=== PATIENT | male | born 1955 | race Caucasian/White ===

== ENCOUNTER 2021-11-03 12:00 | Emergency (ER) | payer MEDICARE, SELFPAY ==
[2021-11-03] VITALS (36 sets, daily range): BP systolic 127–190; BP diastolic 85–152; PULSE 86–200; RESP 15–34; TEMP 36.5–36.8; O2SAT 93–98
--- NOTE | 2021-11-03 12:00 | RT.EKG_ITS ---
APPROVED REPORT Exam: Resting ECG Reason for Exam: tacycardia Patient Location: E HR:159 bpm ECG Measurements Heart Rate 159 AXIS OR 90 P 0 QRSd 76 QRS 65 QT 284 T 242 QTc 463 Conclusion Supraventricular tachycardia...V-rate>(220-age), QRSd<120 Low voltage, extremity leads...all extremity leads <0.5mV Repolarization abnormality, prob rate related...ST dep, T neg, tachycardia no STEMI I have reviewed and interpreted ECG and agree with software generated interpretation.
[2021-11-03 12:42] LABS: Abs Immature Grans 0.02 10^3/uL (0.0-0.06); Absolute Basophil Count 0.06 10^3/uL (0.0-0.2); Absolute Eosinophil Count 0.12 10^3/uL (0.0-0.7); Absolute Lymphocyte Count 1.35 10^3/uL (1.2-3.4); Absolute Monocyte Count 0.69 10^3/uL (0.1-0.8); Absolute Neutrophil Count 6.29 10^3/uL (1.2-6.7); Basophils % 0.7; Eosinophils % 1.4; HCT 40.8 % (40.0-50.0); HGB 13.2 g/dL (13.5-17.5); Immature Grans % 0.2; Lymphocytes % 15.8; MCH 29.9 pg (27.0-33.0); MCHC 32.4 % (32.0-36.0); MCV 93 fL (80-95); MPV 9.7 fL (8.0-11.0); Monocytes % 8.1; Neutrophils % 73.8; Platelet Count 431 10^3/uL (130-400); RBC 4.41 10^6/uL (4.36-5.78); RDW 14.6 % (11.8-14.1); RDW-SD 49.3 fL; WBC 8.53 10^3/uL (4.4-10.8)
--- NOTE | 2021-11-03 12:45 | RT.EKG_ITS ---
APPROVED REPORT Exam: Resting ECG Reason for Exam: SVT Patient Location: E HR:89 bpm ECG Measurements Heart Rate 89 AXIS NE 150 P 18 QRSd 79 QRS 48 QT 397 T [id number] QTc 483 Conclusion Sinus rhythm...normal P axis, V-rate 60- 99 Nonspecific T abnormalities, lateral leads...T <-0.10mV, I aVL V5 V6 no STEMI I have reviewed and interpreted ECG and agree with software generated interpretation.
[2021-11-03] MEDS: Adenosine 6 MG/2 ML VIAL (12:55)
[2021-11-03 13:18] LABS: ALT 47 U/L (16-63); AST 34 U/L (15-37); Albumin 3.4 g/dL (3.4-5.0); Alkaline Phosphatase 96 U/L (46-116); Anion Gap 11.8 mmol/L (3-11); BUN 26 mg/dL (7-18); Bilirubin, Total 0.4 mg/dL (0.2-1.0); CO2 27.2 mmol/L (21.0-32.0); CREATININE 1.3 mg/dL (0.70-1.30); Calcium 9.1 mg/dL (8.5-10.1); Chloride 101 mmol/L (98-107); Estimated GFR 55.23 (mL/min/1.73m2); Glucose 126 mg/dL (74-106); Magnesium 1.9 mg/dL (1.8-2.4); Potassium 4.2 mmol/L (3.5-5.1); Sodium 140 mmol/L (136-145); TSH (W/Ref FT4) 4.19 uIU/mL (0.36-3.74); Total Protein 7.2 g/dL (6.4-8.2); Troponin I < 50 ng/L (<or=60)
[2021-11-03 13:19] LABS: D-Dimer 3535 ng/mlFEU (<500)
[2021-11-03] MEDS: dilTIAZem 25 MG/5 ML VIAL 20 MG IVP (13:39)
[2021-11-03] MEDS: dilTIAZem 125 MG in Normal Saline 100 ML IV (13:46)
[2021-11-03 13:47] LABS: Source Nasal/Nares
[2021-11-03 13:54] LABS: FREE T4 1.07 ng/dL (0.76-1.46)
--- NOTE | 2021-11-03 14:15 | DI.CT_ITS ---
Exam(s) CT CHEST PE CTA EXAM: CT CHEST PE CTA CLINICAL HISTORY: Elevated D-dimer. TECHNIQUE: Imaging Protocol: CT angiography of the chest was performed using pulmonary embolus [place] col. Multi planar reconstructions were performed. CONTRAST MATERIAL: Intravenous: Omnipaque 350 Contrast volume: 100 cc COMPARISON: No exams were available for comparison FINDINGS: CHEST: Images are degraded by respiratory motion artifact. PULMONARY ARTERIES: There are no intraluminal filling defects to suggest acute pulmonary emboli. LUNGS: There are more moderate-large bilateral pleural effusions, right larger than left and there is associated significant volume loss of the basal segments of both lower lobes.. No obvious pulmonary nodules. No with significant findings in the trachea and mainstem bronchi. MEDIASTINUM: There is no hilar nor mediastinal adenopathy. Visualized thyroid unremarkable. CARDIAC: Cardiomegaly. No pericardial effusion.Caliber of the thoracic aorta is within normal limits . There is no significant shift of the interventricular septum. PARTIALLY VISUALIZED UPPERMOST ABDOMEN: No obvious findings OSSEOUS: No significant osseous lesions.. IMPRESSION: 1. No evidence of acute pulmonary emboli 2. There are bilateral pleural effusions, right larger than left and there is relaxation atelectasis- volume loss in basal segments of both lower lobes. 3. Cardiomegaly. No pericardial effusion. Results called by myself to ER provider RADIATION DOSE DELIVERED: 296.12mGy.cm Total DLP DATA REPOSITORY: All CT scans at this facility are submitted to the National Radiology Data Registry (NRDR) Dose Index Registry (DIR) with the [employer] ([employer]). RADIATION OPTIMIZATION: All CT scans at this facility use at least one of these dose optimization te chniques: automated exposure control; mA and/or kV adjustment per patient size (includes targeted exa ms where dose is matched to clinical indication); or iterative reconstruction.
[2021-11-03 14:17] LABS: NT-proBNP 8689 pg/mL (<300)
[2021-11-03 14:41] LABS: COVID-19 PCR Negative (Negative)
--- NOTE | 2021-11-03 15:15 | W.ED.GENAD ---
Discharge Plan Disposition Patient Disposition: HOME Condition: Improving Discharge Details Clinical Impression: SVT (supraventricular tachycardia), New onset of congestive heart failure Primary Care Provider: None,None ED Provider: Ruchi Devine Home Meds and New Rx's Prescriptions: New furosemide [Lasix] 40 mg tablet 40 mg PO DAILY Qty: 4 0RF diltiazem HCl 240 mg capsule,extended release 24 hr 240 mg PO QAM Qty: 20 0RF Continued omeprazole 20 MG capsule,delayed release(DR/EC) 20 mg PO PRN PRN Discharge Instructions Instructions: Diltiazem (By mouth), Heart Failure (ED), Supraventricular Tachycardia (ED) Additional Instructions: Your work-up today was concerning for a fast heart rate called supraventricular tachycardia. This was able to be stopped with the medication you were given through the IV. We will keep you on this medication in a pill form. You also had fluid overload, likely because of the fast heart rate. To help get rid of this increased fluid, you are going to continue with the water pill which will help you pee out this extra fluid. Tonight, please take the 60mg Diltiazem at 11PM. Tomorrow morning, please take the 240mg Diltiazem and Lasix as prescribed, this was sent to your pharmacy. Take the dosing of this Diltiazem at 10AM then morning dosing after that. If you develop chest pain, increased shortness of breath, heart palpitations or any other new/worsening symptoms please seek care urgently once again. Please keep the software quality test engineer on and in place as instructed by respiratory therapy. We have referred you to cardiology, they will call to schedule follow up. Please also call your primary care in the morning to schedule follow up with them in the next week. Referrals: Shirley Barrientos [NURSE PRACTITIONER] - Discharge Orders Other Ambulatory Orders: Holter Monitor (Routine) Timeframe: 1 Week Facility: [facility] - Location: Respiratory Therapy Ordered By: Ruchi Devine Discharge Data Discharge Date/Time-TO BE ENTERED AT DEPARTURE: 11/03/21 19:09 Medical Decision Making <Siddhartha Crespo NP - Last Filed: 11/04/21 09:49> Patient presenting to the emergency department for chief complaint of shortness of breath with activity and bilateral lower extremity edema. Does state slightly increased of malaise and some fatigue. Denies any current pain or discomfort but does state 2 months ago he had some epigastric discomfort. Patient states that he is otherwise healthy and very active individual with occasional heartburn. Patient is not on any medications, does not an active smoker, and has occasional beer which he states is once a month or less. Physical exam shows significantly tachycardic patient with heart rate in the 150s, bilateral lower extremity edema through the calves of 2+, otherwise unremarkable exam. Patient on monitor appears to be in SVT EKG performed and please see physician interpretation for full interpretation but patient appears to have narrow complex SVT with rate of 150s. Standard cardiac labs were sent including tick or Lyme panel given the patient has outdoors and active. Pending results did attempt a vagal maneuvers which did not work. Did discuss with patient risk versus benefit of adenosine for cardioversion given that pressure is appropriate and patient is otherwise feeling fine. After discussion patient gave verbal consent to attempt adenosine. 1253 6mg of adenosine was pushed rapidly and cardiac effect was noted but patient immediately returned to SVT in the 150s. Given that patient has potentially had SVT for weeks to months do not know if adenosine will be effective given how rapidly patient returned to rhythm after initial dose. We will plan on checking with cardiology. For any further recommendations Due to delay in speaking to cardiology went ahead and started diltiazem with a 20 mg push and starting patient at 5 mg. This was quickly increased to 10 mg that seem to convert patient. Once rate control started to be achieved it appears that patient was in atrial fib with some bigeminy but this quickly changed into sinus rhythm. We were not able to capture the irregular rhythm on EKG due to short nature of episode. Review of labs show slight anemia, BUN of 26 with anion gap of 11.8 creatinine is 1.3 with a GFR 55, initial troponin is nondetected, BNP is 8689, TSH is 4.19 but free T4 is 1.07. Patient did have elevated D-dimer at 3535. Given elevated D-dimer we will plan on performing CT imaging of the chest with IV contrast Did speak with Dr. Allen lane marker installer in regards to patient's condition. She agreed with diltiazem drip with plan to admit patient for new onset CHF and need for medications along with transition to oral meds(beta blockers). Review of CT imaging and speaking with radiologist shows no pulmonary emboli but does show bilateral pulmonary effusions with right side being worse than left. Ordered patient 40 mg IV Lasix. We will plan on admitting patient to ICU. 1515-patient remains in normal sinus rhythm and in stable condition 1545-spoke to hospitalist about admission of patient. She requested that we give patient 60 mg instant release Cardizem p.o. and then attempt to shut off drip in 1 hour. She requested then that we really contact her after attempting transition off of IV drip. This documentation was generated using [employer] dictation system, please disregard any oddities of phrase or misspellings. Imaging Data Radiologic Study: Imaging: CT Scan Radiologist's impression: CTA PE FINDINGS: CHEST: Images are degraded by respiratory motion artifact. PULMONARY ARTERIES: There are no intraluminal filling defects to suggest acute pulmonary emboli. LUNGS: There are more moderate-large bilateral pleural effusions, right larger than left and there is associated significant volume loss of the basal segments of both lower lobes.. No obvious pulmonary nodules. No with significant findings in the trachea and mainstem bronchi. MEDIASTINUM: There is no hilar nor mediastinal adenopathy. Visualized thyroid unremarkable. CARDIAC: Cardiomegaly. No pericardial effusion.Caliber of the thoracic aorta is within normal limits. There is no significant shift of the interventricular septum. PARTIALLY VISUALIZED UPPERMOST ABDOMEN: No obvious findings OSSEOUS: No significant osseous lesions.. IMPRESSION: 1. No evidence of acute pulmonary emboli 2. There are bilateral pleural effusions, right larger than left and there is relaxation atelectasis-volume loss in basal segments of both lower lobes. 3. Cardiomegaly. No pericardial effusion. Lab Data Lab results reviewed: Yes I reviewed the patient's lab results. <EMMA Malcolm - Last Filed: 11/04/21 11:49> Patient presenting to the emergency department for chief complaint of shortness of breath with activity and bilateral lower extremity edema. Does state slightly increased of malaise and some fatigue. Denies any current pain or discomfort but does state 2 months ago he had some epigastric discomfort. Patient states that he is otherwise healthy and very active individual with occasional heartburn. Patient is not on any medications, does not an active smoker, and has occasional beer which he states is once a month or less. Physical exam shows significantly tachycardic patient with heart rate in the 150s, bilateral lower extremity edema through the calves of 2+, otherwise unremarkable exam. Patient on monitor appears to be in SVT EKG performed and please see physician interpretation for full interpretation but patient appears to have narrow complex SVT with rate of 150s. Standard cardiac labs were sent including tick or Lyme panel given the patient has outdoors and active. Pending results did attempt a vagal maneuvers which did not work. Did discuss with patient risk versus benefit of adenosine for cardioversion given that pressure is appropriate and patient is otherwise feeling fine. After discussion patient gave verbal consent to attempt adenosine. 1253 6mg of adenosine was pushed rapidly and cardiac effect was noted but patient immediately returned to SVT in the 150s. Given that patient has potentially had SVT for weeks to months do not know if adenosine will be effective given how rapidly patient returned to rhythm after initial dose. We will plan on checking with cardiology. For any further recommendations Due to delay in speaking to cardiology went ahead and started diltiazem with a 20 mg push and starting patient at 5 mg. This was quickly increased to 10 mg that seem to convert patient. Once rate control started to be achieved it appears that patient was in atrial fib with some bigeminy but this quickly changed into sinus rhythm. We were not able to capture the irregular rhythm on EKG due to short nature of episode. Review of labs show slight anemia, BUN of 26 with anion gap of 11.8 creatinine is 1.3 with a GFR 55, initial troponin is nondetected, BNP is 8689, TSH is 4.19 but free T4 is 1.07. Patient did have elevated D-dimer at 3535. Given elevated D-dimer we will plan on performing CT imaging of the chest with IV contrast Did speak with Dr. Allen lane marker installer in regards to patient's condition. She agreed with diltiazem drip with plan to admit patient for new onset CHF and need for medications along with transition to oral meds(beta blockers). Review of CT imaging and speaking with radiologist shows no pulmonary emboli but does show bilateral pulmonary effusions with right side being worse than left. Ordered patient 40 mg IV Lasix. We will plan on admitting patient to ICU. 1515-patient remains in normal sinus rhythm and in stable condition 1545-spoke to hospitalist about admission of patient. She requested that we give patient 60 mg instant release Cardizem p.o. and then attempt to shut off drip in 1 hour. She requested then that we really contact her after attempting transition off of IV drip. This documentation was generated using [employer] dictation system, please disregard any oddities of phrase or misspellings. [place]. Care transitioned to myself from Byron Crespo NP. Please see his initial note regarding history and presentation. In brief, patient is a pleasant 66 year old male currently being treated by Mr. Schulz for SVT which has likely been active for at least the last month. New onset heart failure with bilateral pleural effusions. Patient currently converted to NSR after IV Diltiazem. He has been transitioned to PO, waiting one hour after taking to try turning off drip to ensure he stays rhythm controlled. Plan for admission. Patient has also received IV Lasix for fluid overload with new onset heart failure. Patient remains stable. Feels that breathing is much improved. Patient off IV support x 1hour and remains in NSR with rate in 80s. Consulted with hospitalist who had been planning on admission. However, as the paitent is doing so well, she advised discussing potential discharge. She recommended continuing with the 60mg Q6 tonight then transitioning ot 240mg QD tomorrow morning if patient is able to be d/c to home. Discussed with patient. He reports he is feeling much improved. We had shared decision making discussion regarding admission vs. discharge. He would prefer discharge if possible. Patient was road tested, did very well. He will be send home with dosing for diltiazem for tonight and will mixing picker tender the continued dosing tomorrow of Diltiazem and Lasix. He was given very strict return precautions. He will f/u promptly with PCP. Also have asked for fu with cardiology in the next week. Tried to have patient started on software quality test engineer but unavailable tonight, he will come back in tomorrow to have this placed. All of his questions and concerns were addressed, he is in agreement with korey dowling. Will conitnue with Cardizem. Lasix next few days until reevaluation. HPI <Siddhartha Crespo NP - Last Filed: 11/04/21 09:49> General Mode of arrival: ambulatory. Date/Time Provider Initiated Documentation: 11/03/21 12:09. Limitations to Documentation: no limitations. Information obtained by: patient and RN notes reviewed. History of Present Illness 66 year old M presents to the emergency department with the chief complaint of Fatigue shortness of breath and swelling, Quality is described as other (Denies pain), Patient started experiencing this month(s) (2) and it has been constant. No relieving factors improve symptom(s), Other factors that worsen symptoms (Activity) . Patient notes no other symptoms.. Patient did receive the following treatments prior to arrival, none Related Data Home Medications Medication Instructions Recorded Confirmed omeprazole 20 mg capsule,delayed 20 mg PO PRN PRN 12/06/11/04/21 release diltiazem HCl 240 mg capsule,24 240 mg PO QAM #20 caps 11/03/21 11/04/21 hr,extended release furosemide 40 mg tablet (Lasix) 40 mg PO DAILY #4 tabs 11/03/21 11/04/21 Previous Rx's Medication Instructions Recorded diltiazem HCl 240 mg capsule,24 240 mg PO QAM #20 caps 11/03/21 hr,extended release furosemide 40 mg tablet (Lasix) 40 mg PO DAILY #4 tabs 11/03/21 Allergies Allergy/AdvReac Type Severity Reaction Status Date / Time No Known Allergies Allergy Unverified 11/04/21 09:54 General Stated Complaint: Palpitatns ERVIN: 2 Review of Systems <Siddhartha Crespo NP - Last Filed: 11/04/21 09:49> Constitutional Constitutional: Denies chills, Reports fatigue, Denies fever(s), Denies headache(s) and Reports malaise ENT Ears, Nose, Mouth, and Throat: Denies vertigo, Denies dizziness, Denies headache(s) and Denies sore throat Cardiovascular Cardiovascular: Denies chest pain, Denies rapid heart rate, Reports pedal edema, Reports edema, Reports leg edema, Denies lightheadedness, Denies radiating jaw, neck or arm pain, Reports dyspnea and Reports dyspnea on exertion Respiratory Respiratory: Reports cough, Reports dyspnea and Reports dyspnea on exertion Gastrointestinal Gastrointestinal: Reports abdominal pain (Epigastric 2 months ago) Genitourinary Genitourinary: Denies difficulty urinating Musculoskeletal Musculoskeletal: Denies arthralgias and Denies joint swelling Integumentary/Breasts Skin/Breast: Denies rash Neurologic Neurologic: Denies vertigo, Denies dizziness and Denies headache(s) Psychiatric Psychiatric: Denies anxiety Endocrine Endocrine: Reports fatigue PFSH <Siddhartha Crespo NP - Last Filed: 11/04/21 09:49> All Active Problems (Updated 11/04/21 @ 10:44 by Chula May DO) SVT (supraventricular tachycardia) (Chronic) Encounter for medication administration (Acute) Medical History (Updated 11/04/21 @ 10:44 by Chula May DO) New onset of congestive heart failure SVT (supraventricular tachycardia) Surgical History (Updated 11/04/21 @ 10:44 by Chula May DO) No significant past surgical history Social History Smoking/Tobacco Use Status: Never Smoking risk assessment performed?: Yes Alcohol Intake: current Alcohol Intake frequency: holidays/special occasions only Alcohol type: beer Drug use: Never Substance use type: does not use Do you feel safe at home: Yes Do you feel safe in your relationship?: Yes Exam <Siddhartha Crespo NP - Last Filed: 11/04/21 09:49> Const General: cooperative, healthy appearing, comfortable, no acute distress, not diaphoretic and not ill appearing Nutritional Appearance: average body habitus Orientation: alert, awake and oriented x3 Limitations: mental status not altered Neck Neck: normal visual inspection, full ROM, trachea midline, supple and no anterior neck swelling Thyroid: thyroid normal Carotids: normal carotid upstroke and no bruits Chest Chest: normal inspection of the chest Resp Effort & Inspection: normal respiratory effort and able to speak in complete sentences Auscultation: clear to auscultation bilaterally Cardio Jugular venous pressure: no JVD Palpation: normal PMI Rate: tachycardic Rhythm: regular rhythm Heart Sounds: S1 normal, S2 normal, no click, no gallops, no murmurs and no rubs Bruits: no abdominal aortic bruits and no carotid bruits Pulses: radial pulses present bilaterally 2+ GI Inspection: normal to inspection Palpation: soft, no aortic enlargement, no pulsatile masses and nontender Auscultation: normal bowel sounds Skin General skin exam: no rashes or lesions noted Neuro General: patient alert, patient awake, patient oriented x3, tone normal and moves all extremities Extrem General: edema Laterality: bilateral (2+) Course <Siddhartha Loboaney, BUSINESS INITIATIVES MANAGER - Last Filed: 11/04/21 09:49> Vital Signs Vital signs: Vital Signs Temperature 36.5 C 11/03/21 12:06 Pulse 158 H 11/03/21 12:06 Respiratory Rate 34 H 11/03/21 12:06 Blood Pressure 160/125 H 11/03/21 12:06 Pulse Oximetry 96 11/03/21 12:06 Temperature 36.8 C 11/03/21 13:03 Temperature Source Temporal Artery Scan 11/03/21 13:03 Pulse 89 11/03/21 14:16 Pulse 90 11/03/21 14:16 Respiratory Rate 26 H 11/03/21 14:16 Respiratory Effort Labored 11/03/21 12:11 Blood Pressure 152/105 H 11/03/21 14:16 Blood Pressure Mean 115 11/03/21 14:16 Blood Pressure Position Sitting 11/03/21 12:06 Pulse Oximetry 94 11/03/21 14:16 Oxygen Delivery Method Room Air 11/03/21 13:06 Oxygen Flow Rate 0 11/03/21 13:06 Pain Level 0 11/03/21 12:13 Lab/Test Results Lab/Test Results: Laboratory Tests Range/Units 11/03/21 11/03/21 11/03/21 12:23 12:23 12:23 WBC (4.4-10.8) 10^3/uL 8.53 RBC (4.36-5.78) 10^6/uL 4.41 Hgb (13.5-17.5) g/dL 13.2 L Hct (40.0-50.0) % 40.8 MCV (80-95) fL 93 MCH (27.0-33.0) pg 29.9 MCHC (32.0-36.0) % 32.4 RDW (11.8-14.1) % 14.6 H Plt Count (130-400) 10^3/uL 431 H MPV (8.0-11.0) fL 9.7 Immature Gran % 0.2 Neutrophils % 73.8 Lymphocytes % 15.8 Monocytes % 8.1 Eosinophils % 1.4 Basophils % 0.7 Nucleated RBC % (0.0-0.3) % 0.0 Absolute Neutrophils (1.2-6.7) 10^3/uL 6.29 Absolute Lymphocytes (1.2-3.4) 10^3/uL 1.35 Absolute Monocytes (0.1-0.8) 10^3/uL 0.69 Absolute Eosinophils (0.0-0.7) 10^3/uL 0.12 Absolute Basophils (0.0-0.2) 10^3/uL 0.06 D-Dimer (<500) ng/mlFEU 3535 H Sodium (136-145) mmol/L 140 Potassium (3.5-5.1) mmol/L 4.2 Chloride (98-107) mmol/L 101 Carbon Dioxide (21.0-32.0) mmol/L 27.2 Anion Gap (3-11) mmol/L 11.8 H BUN (7-18) mg/dL 26 H Creatinine (0.70-1.30) mg/dL 1.3 Estimated GFR/1.73 m2 (mL/min/1.73m2) 55.23 Glucose (74-106) mg/dL 126 H Calcium (8.5-10.1) mg/dL 9.1 Magnesium (1.8-2.4) mg/dL 1.9 Total Bilirubin (0.2-1.0) mg/dL 0.4 AST (15-37) U/L 34 ALT (16-63) U/L 47 Alkaline Phosphatase (46-116) U/L 96 Troponin I (<or=60) ng/L < 50 NT-Pro-B Natriuret Pep (<300) pg/mL Total Protein (6.4-8.2) g/dL 7.2 Albumin (3.4-5.0) g/dL 3.4 TSH (0.36-3.74) uIU/mL 4.19 H Free T4 (0.76-1.46) ng/dL 1.07 COVID-19 Source SARS-CoV-2 (PCR) (Negative) Range/Units 11/03/21 11/03/21 12:23 13:35 WBC (4.4-10.8) 10^3/uL RBC (4.36-5.78) 10^6/uL Hgb (13.5-17.5) g/dL Hct (40.0-50.0) % MCV (80-95) fL MCH (27.0-33.0) pg MCHC (32.0-36.0) % RDW (11.8-14.1) % Plt Count (130-400) 10^3/uL MPV (8.0-11.0) fL Immature Gran % Neutrophils % Lymphocytes % Monocytes % Eosinophils % Basophils % Nucleated RBC % (0.0-0.3) % Absolute Neutrophils (1.2-6.7) 10^3/uL Absolute Lymphocytes (1.2-3.4) 10^3/uL Absolute Monocytes (0.1-0.8) 10^3/uL Absolute Eosinophils (0.0-0.7) 10^3/uL Absolute Basophils (0.0-0.2) 10^3/uL D-Dimer (<500) ng/mlFEU Sodium (136-145) mmol/L Potassium (3.5-5.1) mmol/L Chloride (98-107) mmol/L Carbon Dioxide (21.0-32.0) mmol/L Anion Gap (3-11) mmol/L BUN (7-18) mg/dL Creatinine (0.70-1.30) mg/dL Estimated GFR/1.73 m2 (mL/min/1.73m2) Glucose (74-106) mg/dL Calcium (8.5-10.1) mg/dL Magnesium (1.8-2.4) mg/dL Total Bilirubin (0.2-1.0) mg/dL AST (15-37) U/L ALT (16-63) U/L Alkaline Phosphatase (46-116) U/L Troponin I (<or=60) ng/L NT-Pro-B Natriuret Pep (<300) pg/mL 8689 H Total Protein (6.4-8.2) g/dL Albumin (3.4-5.0) g/dL TSH (0.36-3.74) uIU/mL Free T4 (0.76-1.46) ng/dL COVID-19 Source Nasal/Nares SARS-CoV-2 (PCR) (Negative) Negative Critical Care Time <Siddhartha Crespo NP - Last Filed: 11/04/21 09:49> Critical Care Time Critical Care Time: Yes Total Critical Care Time: 45 Attestation: At least 45 minutes was spent performing life-saving interventions including attempt to convert worrisome cardiac rhythm, review of labs, discussing case with consult, and reassessment of patient. Sign Out <Siddhartha Crespo NP - Last Filed: 11/04/21 09:49> Sign Out Data: Sign Out Comment: Patient pending reassessment at 5 PM for consideration of diltiazem drip turned off due to oral medication. If patient continues to be rate controlled on oral meds plan to contact hospitalist for admission orders. Last updated by Siddhartha Crespo NP at 11/03/21 15:59 PAWSS <Siddhartha Crespo NP - Last Filed: 11/04/21 09:49> Have you Been Recently Intoxicated or Drunk Within the Last 30 days?: No Have you Ever Experienced Previous Episodes of Alcohol Withdrawal?: No Have you ever Experienced Withdrawal Seizures?: No Have you ever Experienced Delirium Tremens(DT)s?: No Have you ever undergone Alcohol Rehabilitation Treatment (i.e, inpt ot outpatient treatment programs)?: No Have you ever Experienced Blackouts?: No Have you ever Combined Alcohol with other Downers within the last 90 days?: No Have you ever Combined Alcohol with any other Substance of Abuse during the last 90 days?: No Result: 0 <EMMA Malcolm - Last Filed: 11/04/21 11:49> Result: 0
[2021-11-03] MEDS: dilTIAZem 30 MG TAB 60 MG PO (15:49)
[2021-11-03] MEDS: Furosemide 40 MG/4 ML VIAL IVP (15:50)
[2021-11-03 17:18] LABS: Troponin I < 50 ng/L (<or=60)
[2021-11-03] MEDS: dilTIAZem 30 MG TAB (19:06)
--- NOTE | 2021-11-03 21:13 | NUR.NOTE ---
Cardiac Event Recorder req faxed to [phone] to be placed son.Nursing Note:
[2021-11-04 11:34] LABS: Lyme Ab w Rflx to Lyme Confirm Negative (Negative)
[2021-11-05 18:25] LABS: Anaplasma phagocytophilum Negative (Negative); B. miyamotoi PCR Negative (Negative); Babesia divergens/MO-1 Negative (Negative); Babesia duncani Negative (Negative); Babesia microti Negative (Negative); Ehrlichia chaffeensis Negative (Negative); Ehrlichia ewingii/canis Negative (Negative); Ehrlichia muris eauclairensis Negative (Negative)
== END 2021-11-03 19:09 | disposition home or self-care (01) ==
PROVIDERS: Nurse Practitioner Family; Emergency Provider Physician Assistant
DX: I47.1 Supraventricular tachycardia (principal); I48.91 Unspecified atrial fibrillation; I50.9 Heart failure, unspecified; Z20.822 Contact with and (suspected) exposure to COVID-19; J91.8 Pleural effusion in other conditions classified elsewhere
CPT/HCPCS: 36415; 71275; 80053; 87635; 87798; 93005; 96365; 96366; 96375; 96376; 99291; 83735; 83880; 84439; 84443; 84484; 85025; 85379; 86618; 93010; J0153; J1940

== ENCOUNTER 2021-11-04 09:44 | Emergency (ER) | payer MEDICARE, SELFPAY ==
[2021-11-04 09:52] VITALS: BP 141/92; PULSE 87; RESP 18; TEMP 36.6; O2SAT 97
--- NOTE | 2021-11-04 09:53 | ED.GENADUL_ITS ---
Discharge Plan Disposition Patient Disposition: HOME Condition: Stable Discharge Details Clinical Impression: Encounter for medication administration Primary Care Provider: None,None ED Provider: Chula May Home Meds and New Rx's Prescriptions: Continued omeprazole 20 MG capsule,delayed release(DR/EC) 20 mg PO PRN PRN furosemide [Lasix] 40 mg tablet 40 mg PO DAILY Qty: 4 0RF diltiazem HCl 240 mg capsule,extended release 24 hr 240 mg PO QAM Qty: 20 0RF Discharge Instructions Instructions: Diltiazem (By mouth), Supraventricular Tachycardia (ED) Additional Instructions: Start taking your diltiazem prescription tomorrow as directed. Take your Lasix as directed. Rest and elevate your legs as much as possible. You have been placed on care management list to arrange for follow-up appointment with a primary care doctor to establish care and for reevaluation. You will be contacted by the respiratory therapy department regarding when to return to the hospital for placement of your cardiac catheterization technician. Return immediately to the emergency department if you develop any worsening or new concerning symptoms. Discharge Data Discharge Date/Time-TO BE ENTERED AT DEPARTURE: 11/04/21 11:14 Discharge Physician: Chula May Medical Decision Making 66-year-old male newly diagnosed with SVT and new onset CHF when seen in the ED yesterday for dyspnea on exertion and lower extremity edema who converted while in the emergency department and sent home with prescriptions for diltiazem and Lasix presents for request for a dose of diltiazem as his pharmacy does not have this available until tomorrow. Patient states he is feeling better and his symptoms have improved. Heart rate 87. Patient is in no acute distress and is breathing comfortably. He has 1+ pitting edema in his lower extremities but states this is much improved. Do not see an indication for lab work or imaging or repeat EKG. He was given a dose of his diltiazem 240 mg p.o. x1. He has his Lasix which he will start this morning. He will pick up man his prescription for diltiazem tomorrow. An outpatient 30-day cardiac catheterization technician was also ordered yesterday but was unable to be placed in the emergency department last night. Patient states he was told to likely return today for this. Called respiratory therapy and spoke with respiratory therapist Camryn she states she has not been instructed yet on how to register patient for this and that Danny is currently doing an EEG. Patient states he would rather go home and rest. Informed that the respiratory therapy department will call him for scheduling for the cardiac catheterization technician. Patient placed on care management list to arrange for a follow-up appointment with the primary care doctor to establish care. He already has follow-up with cardiology. Usu al and customary return precautions given prior to discharge. Medical Records Medical records reviewed: Yes I reviewed the patient's medical records. HPI General Mode of arrival: ambulatory . Date/Time Provider Initiated Documentation: 11/04/21 09:50 . Limitations to Documentation: no limitations . Information obtained by: patient . HPI Narrative: Patient is a 66-year-old male who was seen here yesterday for dyspnea on exertion and lower extremity edema and diagnosed with SVT and new onset CHF and was able to be converted and ultimately discharged to home with prescriptions for diltiazem and Lasix who presents for request for a dose of diltiazem as the pharmacy states they will not have this ready until tomorrow. He was able to fill his Lasix prescription. Patient states he feels much better and denies any chest pain or shortness of breath. He states his lower extremity swelling has improved. Related Data Home Medications Medication Instructions Recorded Confirmed omeprazole 20 mg capsule,delayed 20 mg PO PRN PRN 12/06/14 11/04/21 release diltiazem HCl 240 mg capsule,24 240 mg PO QAM #20 caps 11/03/21 11/04/21 hr,extended release furosemide 40 mg tablet (Lasix) 40 mg PO DAILY #4 tabs 11/03/21 11/04/21 Previous Rx's Medication Instructions Recorded diltiazem HCl 240 mg capsule,24 240 mg PO QAM #20 caps 11/03/21 hr,extended release furosemide 40 mg tablet (Lasix) 40 mg PO DAILY #4 tabs 11/03/21 Allergies Allergy/AdvReac Type Severity Reaction Status Date / Time No Known Allergies Allergy Unverified 11/04/21 09:54 General Stated Complaint: GenMedical ERVIN: 4 Review of Systems All systems reviewed & are unremarkable except as noted in HPI and below Constitutional Constitutional: Reports as per HPI, Denies chills and Denies fever(s) Eyes Eyes: Denies blurry vision ENT Ears, Nose, Mouth, and Throat: Denies dizziness, Denies sore throat and Denies throat swelling Cardiovascular Cardiovascular: Denies chest pain and Denies dyspnea Respiratory Respiratory: Denies cough and Denies dyspnea Gastrointestinal Gastrointestinal: Denies abdominal pain, Denies diarrhea and Denies vomiting Genitourinary Genitourinary: Denies hematuria and Denies dysuria Musculoskeletal Musculoskeletal: Denies back pain and Denies numbness Integumentary/Breasts Skin/Breast: Denies lesions and Denies rash Neurologic Neurologic: Denies dizziness, Denies localized weakness and Denies numbness Allergic/Immunologic Allergic/Immunologic: Denies throat swelling PFSH All Active Problems (Updated 11/04/21 @ 10:44 by Chula May DO) SVT (supraventricular tachycardia) (Chronic) Encounter for medication administration (Acute) Medical History (Updated 11/04/21 @ 10:44 by Chula May DO) New onset of congestive heart failure SVT (supraventricular tachycardia) Surgical History (Updated 11/04/21 @ 10:44 by Chula May DO) No significant past surgical history Social History Smoking/Tobacco Use Status: Never Smoking risk assessment performed?: Yes Alcohol Intake: current Alcohol Intake frequency: holidays/special occasions only Alcohol type: beer Drug use: Never Substance use type: does not use Do you feel safe at home: Yes Do you feel safe in your relationship?: Yes Exam Const General: cooperative and no acute distress Orientation: alert, awake and oriented x3 HENMT Head: normal to inspection Mouth: oral mucosae normal Eyes General: appearance normal, both eyes and all related structures Neck Neck: normal visual inspection Resp Effort & Inspection: normal respiratory effort and able to speak in complete sentences Cardio Rate: regular rate Skin General skin exam: no rashes or lesions noted Neuro General: patient alert, patient awake and patient oriented x3 Motor: muscle tone normal throughout Extrem General: normal to inspection, full ROM and edema Laterality: bilateral (1+) Psych Appearance: grossly normal Affect: normal affect
[2021-11-04] MEDS: dilTIAZem CD 120 MG CAPCR 240 MG PO (10:45)
--- NOTE | 2021-11-04 11:02 | NUR.NOTE ---
Patient needs a PCP, put the referral on critical care physician assistant's list for assistance with this.Nursing Note:
== END 2021-11-04 11:14 | disposition home or self-care (01) ==
PROVIDERS: Emergency Provider Physician Assistant
DX: I47.1 Supraventricular tachycardia (principal); I50.9 Heart failure, unspecified
CPT/HCPCS: 99283

== ENCOUNTER 2021-11-07 03:36 | Outpatient (RCR) | payer MEDICARE, SELFPAY ==
--- OUTSIDE RECORDS SUMMARY | 2021-11-07 03:37 | XMS_ITS | Encounter Summary ---
:1955 Author Organization [facility] Address [address] [place] [address] Care Team Providers Name Role Phone Unavailable Primary Care Provider Unavailable Encounter Details Date Type Department Care Team Description 05/25/2006 Results Only [facility] - Ernestina Francis, Chr istopher, conversion DO [address] [facility] [address] [facility] [address] [place] [address] [place] [address] (Wo rk) Social History Tobacco Use Types Packs/Day Years Used Date Never Assessed Sex Assigned at Date Recorded Not on file documented as of this encounter Plan of Treatment Not on filedocumented as of this encounter Procedures Procedure Name Priority Date/Time Associated Diagnosis Comme [facility] SURGICAL PATHOLOGY Routine 05/25/2006 0:00 EST Re sults for this procedure are i n the results section. documented in this encounter Results SURGICAL PATHOLOGY (05/25/2006 0:00 EST) Pathology Report: SURGICAL PATHOLOGY REPORT [facility] Reports generated via electronic interface contain mary ginal data; LAB however they are lacking the format of the original re port. Caution should be taken when reading/interpreting unfo rmatted reports. Name: ? LEONIDES NEWBY ? Accession #: ? [id number] ? : ? 1955 (Age: 51) ??M ? Collect Date: ? 05/25/2006 ? Location: ? [facility] ? Receive Date: ? 007 ? Provider: KRYSTLE FRANCIS DO Copy to: ? Final Pathologic Diagnosis: ? Esophagus, distal, foreign body, biopsy: - Montiel's esophagus. See comment. - No dysplasia identified. Comment: ? Sections of the biopsy show squamous mucosa wit h acute and chronic inflammation and reactive ch anges. ??Gastric, cardia type mucosa with intestina metaplasia is also identified. ??The histologic featur es are consistent with Montiel's esophagus if in th e correct clinical anatomical setting. ??Fragments of non-viable skeletal muscle is identified , consistent with foreign body. ??(Dr. Rowley)/[facility] Document reviewed and electronically signed by: Arnoldo Rowley MD Report ??Date: 05/28/2006 15:08 By the signature above, the attending physician certif ies that he/she has personally conducted a gross and/or microscopic examin ation of the described specimens and rendered or confirmed the above diagnosi s. Specimen(s) Received: ? Bx distal esophagus Clinical History: ? Foreign body Gross Description: ? Received in Hollande' s fixative labelled Ballek and bx distal esophagus are three fragments of tissu e which vary from 0.5 x 0.3 x 0.1 cm to 0.2 x 0.2 x 0.1 cm which are submitted intact in one cassette. (Sophia Anderson)/[facility] End of Report Specimen Performing Organization Address City/State/ZIP Code Phon e Number [facility] [address] [place] [address] SERVICES [facility] [address] [place] [address] documented in this encounter Visit Diagnoses Not on filedocumented in this encounter
--- OUTSIDE RECORDS SUMMARY | 2021-11-07 03:37 | XMS_ITS | Clinical Summary ---
:1955 Author Organization [facility] Address [address] [place] [address] Care Team Providers Name Role Phone Unknown, Provider Primary Care Provider Encounters Date Type Specialty Care Team Description 11/03/2021 Lab Requisition Clinical Laboratory Outr Resulting Lab , Provider from Last 3 Months Social History Tobacco Use Types Packs/Day Years Used Date Never Assessed Sex Assigned at Date Recorded Not on file Plan of Treatment Health Maintenance Due Date Last Done Comments Fall Risk Screening 02/12/2020 Procedures Procedure Name Priority Date/Time Associated Diagnosis Comme nts LYME AB Routine 11/03/2021 12:23 EDT Results for this procedure are i n the results section . from Last 3 Months Results LYME AB (11/03/2021 12:23 EDT) Pathologist Sig nature Lyme Ab Negative Negative [facility] Specimen Blood - Venous blood (substance) Performing Organization Address City/State/ZIP Code Phon e Number [facility] [address] [place] [address] SERVICES from Last 3 Months Care Teams Beater Dumper Relationship Specialty Start Date End Date Unknown, Provider, PCP - General 03/30/15
--- NOTE | 2021-11-07 08:45 | HOLTER_ITS ---
APPROVED REPORT Conclusion This is a 48-hour Holter monitor reportedly ordered for tachycardia The patient was in both sinus rhythm and atrial flutter/fibrillation during the recording. Duration of atrial fibrillation was reportedly 9 hours and 48 minutes, or 20% of the time Average heart rate overall was 92. Minimum was 73, maximum 157 There was no high-grade AV block, no pauses greater than 3 seconds Heart rates in atrial fibrillation were generally controlled, but occasionally as high as 150 No patient symptoms were reported
== END 2021-12-07 23:59 | disposition home or self-care (01) ==
LOC: RT 03:36
PROVIDERS: Visit Provider Physician Assistant
DX: I47.1 Supraventricular tachycardia (principal); I48.91 Unspecified atrial fibrillation; I48.92 Unspecified atrial flutter
CPT/HCPCS: 93227; 93225; 93226

== ENCOUNTER 2021-12-04 11:03 | Outpatient (REF) | payer MEDICARE, SELFPAY ==
[2021-12-04 15:47] LABS: HCT 38.3 % (40.0-50.0); HGB 12.6 g/dL (13.5-17.5); MCH 30.1 pg (27.0-33.0); MCHC 32.9 % (32.0-36.0); MCV 91 fL (80-95); MPV 9.8 fL (8.0-11.0); Platelet Count 400 10^3/uL (130-400); RBC 4.19 10^6/uL (4.36-5.78); RDW 14.6 % (11.8-14.1); RDW-SD 48.7 fL; WBC 6.88 10^3/uL (4.4-10.8)
[2021-12-04 16:06] LABS: BUN 24 mg/dL (7-18); CREATININE 1.1 mg/dL (0.70-1.30); Calcium 9.5 mg/dL (8.5-10.1); Chloride 106 mmol/L (98-107); Glucose 88 mg/dL (74-106); Potassium 4.6 mmol/L (3.5-5.1); Sodium 140 mmol/L (136-145)
== END 2021-12-04 11:04 | disposition home or self-care (01) ==
LOC: NCHCN 11:03
PROVIDERS: PCP Nurse Practitioner Family; Visit Provider Nurse Practitioner Family
DX: I10 Essential (primary) hypertension (principal); I48.91 Unspecified atrial fibrillation
CPT/HCPCS: 80048; 85027; 84443

== ENCOUNTER 2021-12-16 02:21 | Outpatient (CLI) | payer MEDICARE, SELFPAY ==
--- NOTE | 2021-12-16 16:52 | DI.US_ITS ---
APPROVED REPORT EXAM: Comprehensive 2D, Doppler, and color-flow Echocardiogram Patient Location: Out-Patient Soap Press Feeder: Sherrie Hein RDCS (AE) Indications: Atrial Fibrillation Other Information Study Quality: Adequate Conclusion Normal left ventricular wall thickness and chamber size. Estimated ejection fraction is 40 to 45%. There is global hypokinesis Normal right ventricular size and systolic function Both atria are moderately dilated The aortic valve is trileaflet with mild regurgitation Normal mitral valve with mild to moderate regurgitation Normal tricuspid valve with mild to moderate regurgitation. Estimated right ventricular systolic pre ssure is 37 mmHg Dilated ascending aorta measuring 3.76 cm Wall motion Left Ventricle The left ventricle is normal size. Left ventricular systolic function is moderately decreased. There is normal left ventricular wall thickness. There is global hypokinesis of the left ventricle. There i s no ventricular septal defect visualized. LVEF is 40-45%. Right Ventricle The right ventricle is normal size. The right ventricular systolic function is normal. The RVSP is 37 .4mmHg. Atria Left atrium is moderately dilated. Right atrium is moderately dilated. The interatrial septum is inta ct with no evidence for an atrial septal defect. Aortic Valve The aortic valve is normal in structure. Aortic valve is trileaflet. There is no aortic valvular sten osis. Mild aortic regurgitation. Mitral Valve The mitral valve is normal in structure. No evidence of mitral valve stenosis. Mild to moderate casandra l regurgitation. Tricuspid Valve The tricuspid valve is normal in structure. There is no tricuspid valve stenosis. Mild to moderate tr icuspid regurgitation. Pulmonic Valve The pulmonary valve is normal in structure. There is no pulmonic valvular stenosis. Mild pulmonic reg urgitation. Great Vessels The aortic root is normal in size. The ascending aorta is mildly dilated. Aortic arch is normal in ca liber. The IVC collapses <50% with inspiration. Pericardium There is no pericardial effusion. 2D Dimensions IVSD d PLAX 0.90 cm M: 0.6-1.2 LV Vol A2C d MOD 142.9 mL LVPW d PLAX 0.89 cm M: 0.6 - 1.2 LV Vol A4C d MOD 143.0 mL LVID d PLAX 5.47 cm M: 4.2 - 5.8 LA vol/ BSA A2C s A-L 47.3 mL/m2 LVDs 4.40 cm M: 2.5 - 4.0 LA vol/ BSA A4C s A-L 41.4 mL/m2 Ao Root d 3.26 cm M: 3.1 - 3.7 LA Vol/ BSA Biplane s A-L 45.6 mL/m2 RA Area A4C 19.83 cm2 LA Area A4C s MOD 24.26 cm2 RA Vol/ BSA A4C s A-L 31.1 mL/m2 LA Area A2C s MOD 25.17 cm2 Ao Asc Diam d 3.76 cm M: 2.6 - 3.4 LV EF A4C MOD 45.4 % LV EF Teichholz 39.2 % LV EF A2C MOD 40.4 % LVEF (Tapia's) 40.93 % M: 52 - 72 LV EF Biplane MOD 40.9 % LV Volume 109.19 mL M: 62 - 150 SV 58.54 mL LV Volume Index 57.46 mL/m2 M: 34 - 74 SV Index 30.84 mL/m2 LV Vol Biplane MOD 143.0 mL FS 19.20 % M-Mode TAPSE 1.11 cm (M/F) >1.7 LV Diastology MV E' lateral 0.099 (>0.1 m/s) MV E Vmax 0.90 (0.4-1.3 m/s) LV E/e LAT 9.10 (<14) MV E/E' lateral 9.10 Aortic Valve LVOT Area 3.16 cm2 AoV Area Vmax 2.51 cm2 LVOT Vmax 0.94 m/s AoV Area/ BSA (Vmax) 1.32 cm2/m2 LVOT Mean Sung. 0.66 m/s GERALD Mean Sung. 2.37 cm2 LVOT Peak Grad 3.5 mmHg GERALD Mean Sung. Index 1.25 cm2/m2 LVOT Mean Grad 2.0 mmHg AR DT 2337 msec LVOT VTI 0.160 m AR PHT 678 msec LVOT Diam s 2.00 cm AoV Vmax 1.18 m/s Velocity Ratio 0.79 AoV Mean Sugn. 0.88 m/s AoV Peak Grad 5.6 mmHg LVOT SV 50.70 mL AoV Mean Grad 3.4 mmHg AoV VTI 0.188 m AoV Area VTI 2.69 cm2 AoV Area/ BSA (VTI) 1.42 cm/m2 Mitral Valve MV DT 141 (160-240 msec) MR Vmax 4.72 m/s MV PHT 41 msec MR VTI 1.460 m MV Area PHT 5.38 cm2 MR Peak Grad 89.0 mmHg MV VTI 0.273 m MR Mean Grad 68.0 mmHg MV VTI Annulus 0.265 m MR PISA Radius 0.56 cm MV Area VTI 1.80 (4.0-6.0 cm2) MR EROA 0.15 cm2 MR Aliasing Velocity 0.35 m/s MR PISA 2.00 cm2 Pulmonary Valve PV Vmax 0.72 (0.5-1.5 m/s) RVOT Peak Gr. 1.25 mmHg PV Peak Grad 2.1 mmHg RVOT Mean Gr. 0.80 mmHg PV Mean Grad 1.1 mmHg RVOT VTI 0.127 m PV VTI 0.140 m RVOT Vmax 0.56 m/s Tricuspid Valve TR Peak Grad 29.4 mmHg TR Vmax 2.71 m/s RA Pressure 8.00 mmHg RVSP (TR) 37.4 mmHg
== END 2021-12-16 02:41 ==
LOC: DI 02:23
PROVIDERS: PCP Nurse Practitioner Family; Visit Provider Nurse Practitioner Family
DX: I48.91 Unspecified atrial fibrillation (principal)
CPT/HCPCS: 93306

== ENCOUNTER → 2022-01-02 12:40 | Outpatient (BNVA) | payer MEDICARE, SELFPAY | PROVIDERS: PCP Nurse Practitioner Family; Visit Provider Internal Medicine Cardiovascular Disease | DX: Z79.01 Long term (current) use of anticoagulants (principal); I50.22 Chronic systolic (congestive) heart failure; I48.91 Unspecified atrial fibrillation; I42.9 Cardiomyopathy, unspecified; I10 Essential (primary) hypertension | CPT/HCPCS: 93005; 99203; 99214 ==

== ENCOUNTER 2022-01-29 17:01 | Outpatient (REF) | payer MEDICARE, SELFPAY ==
[2022-01-29 15:56] LABS: HCT 39.7 % (40.0-50.0); HGB 13.2 g/dL (13.5-17.5); MCH 31.7 pg (27.0-33.0); MCHC 33.2 % (32.0-36.0); MCV 95 fL (80-95); MPV 10.1 fL (8.0-11.0); Platelet Count 389 10^3/uL (130-400); RBC 4.17 10^6/uL (4.36-5.78); RDW 14.1 % (11.8-14.1); RDW-SD 49.3 fL; WBC 7.53 10^3/uL (4.4-10.8)
[2022-01-29 16:43] LABS: Calculated LDL 144 mg/dL (<100); Cholesterol 209 mg/dL (<200); HDL Cholesterol 41 mg/dL (40-60); Triglyceride 122 mg/dL (<150)
[2022-01-30 09:27] LABS: Hepatitis C Ab w Rflx HCV PCR Negative (Negative)
[2022-01-30 09:41] LABS: HIV-1/2 Ag & Ab Screen Negative (Negative)
== END 2022-01-29 17:02 | disposition home or self-care (01) ==
LOC: NCHCN 17:01
PROVIDERS: PCP Nurse Practitioner Family; Visit Provider Nurse Practitioner Family
DX: I48.91 Unspecified atrial fibrillation (principal); I10 Essential (primary) hypertension; Z11.4 Encounter for screening for human immunodeficiency virus [HIV]; Z11.59 Encounter for screening for other viral diseases
CPT/HCPCS: 80061; 85027; 86803; 87389

== ENCOUNTER 2022-03-10 01:24 | Outpatient (CLI) | payer MEDICARE, SELFPAY ==
--- NOTE | 2022-03-10 06:45 | DI.NM_ITS ---
APPROVED REPORT Exam: Pharmacologic paired w/ low level exercise Patient Location: Out-Patient Room/Bed: Stress Nurse: Lakisha Charles RN Ordering Provider:TASHI COOPER, Contact Number: BMI: 23.24 Baseline Rhythm: Sinus Rhythm / Sinus Arrhythmia Indications: EVALUATE FOR CAD, CARDIOMYOPATHY, ATRIAL FIBRILLATION, CHF Medical History Medical History: HFrEF, Cardiomyopathy, AFIB, SVT, HTN, HLD Cardiac Medications: Rivaroxaban, Omeprazole, Olmesartan, Metoprolol succinate, Furosemide Allergies: No known drug allergies Cardiac Risk Factors: HTN, Hyperlipidemia Previous Cardiac Procedures: None Pretest Chest Pain Characteristics: No chest pain Exercise History: Physically active Physical Disabilities: None Lung Sounds: Clear to auscultation Heart Sounds: Irregular Stress Test Details Test: Exercise stress converted to pharmacologic stress due to failure to obtain a diagnostic stress test. Reason for pharmacologic stress test: changed from exercise stress test due to inability to reach t arget heart rate. Nuclear Acquisition: Rest Tc-99m/Stress Tc-99m 1 day Rest Isotope: Tc-99m Sestamibi. Dose: 10.1 Date: 03/10/2022 Injection Time: 0840 Stress Isotope: Tc-99m Sestamibi. Dose: 32.0 Date: 03/10/2022 Injection Time: 1025 HR Resting HR Supine: 76 bpm Max Heart Rate (APMHR): 153.173427 bpm Resting HR Standin bpm Target HR (85% APMHR): 130.177515 bpm Max HR Achieved: 124 bpm % of APMHR: 81.05 Recovery HR: 94 bpm HR response to stress: Blunted HR response to stress Comment: Metoprolol succinate not held for test. BP Resting BP Supine: 154/90 mmHg Resting BP Standin/90 mmHg Max BP: 164/84 mmHg Recovery BP: 158/98 mmHg BP response to stress: Normal blood pressure response to stress. Comment: Hypertensive at baseline ECG Resting ECG: Sinus Rhythm, Sinus Arrhythmia Ectopy: None Comment: Baseline T wave abnormalities Stress ECG: Sinus Tachycardia ST Change: No significant ST segment changes noted Arrhythmia: occasional PVCs Recovery ECG: Sinus Rhythm Recovery ST Change: No significant ST segment changes noted Recovery Arrhythmia: PAC Clinical Reason for Termination: Fatigue Stress Symptoms: General Fatigue, Dyspnea Exercise duration: 09 min45 sec Highest Stage Reached: Stage 4: 4.2 mph at 16% grade. Exercise capacity: 11.54 METs Rate Pressure Product: 43468 Stress ECG Conclusion 1. Resting electrocardiogram showed left ventricular hypertrophy with repolarization abnormalities 2. Exercise testing was done using a combination of treadmill and pharmacologic stress with regadenos on 3. Peak heart rate achieved was 81% of predicted for age 4. Patient achieved a workload of 11.54 METS 5. The electrocardiographic portion of the test was nondiagnostic due to inadequate heart rate 6. See MPI report Stress Test Summary STAGE Time (mins) Speed (mph) Grade (%) HR BP SpO2 SYMPTOMS METS Supine 76 154/90 Standing 75 158/90 1 3 1.7 10 103 162/88 4.5 2 6 2.5 12 111 164/84 7 3 9 3.4 14 120 98 10 1 min post Lexiscan injection 105 152/80 98 SOB 3 min post Lexiscan injection 103 150/70 6 min post Lexiscan injection 94 158/98 symptoms resolved. Patient transitioned to walking lexiscan stress test. Lexiscan given while patient walked at 1.4 mph and 0% grade. MPI Conclusion Myocardial perfusion shows no evidence of ischemia or prior infarction EF is 35%. There is global hypokinesis Radiologist Interpretation Radiologist agrees with Orthopedic Shoes Salesperson's Interpretation. Radiologist Interpretation by: Sky Crowell MD Interpretation Date/Time: 03/10/2022 19:28:31
[2022-03-10] MEDS: Regadenoson 0.4 MG/5 ML SYR IVP (10:34)
== END 2022-03-10 01:44 ==
PROVIDERS: PCP Nurse Practitioner Family; Visit Provider Internal Medicine Cardiovascular Disease
DX: I50.9 Heart failure, unspecified (principal)
CPT/HCPCS: 78452; 93016; 93018; 93017; J2785

== ENCOUNTER 2022-03-17 02:09 | Outpatient (CLI) | payer MEDICARE, SELFPAY ==
--- NOTE | 2022-03-17 14:01 | DI.US_ITS ---
APPROVED REPORT EXAM: Comprehensive 2D, Doppler, and color-flow Echocardiogram Patient Location: Out-Patient Healthcare Representative: Sherrie Hein RDCS (AE) Indications: Re check LV function, HTN Other Information Study Quality: Adequate Conclusion Normal left ventricular wall thickness and chamber size. Estimated ejection fraction is 40 to 45%. There is global hypokinesis Normal right ventricular size and systolic function Both atria are moderately dilated The aortic valve is trileaflet with mild regurgitation Normal mitral valve with mild to moderate regurgitation Normal tricuspid valve with mild to moderate regurgitation. Estimated right ventricular systolic pre ssure is 47 mmHg Dilated ascending aorta measuring 3.88 cm There is no significant change compared to echocardiogram from December Patient was in sinus rhythm during the study Wall motion Left Ventricle The left ventricle is normal size. Left ventricular systolic function is mild to moderately decreased . There is normal left ventricular wall thickness. There is global hypokinesis of the left ventricle. There is no ventricular septal defect visualized. LVEF is 40-45%. Right Ventricle The right ventricle is normal size. The right ventricular systolic function is normal. The RVSP is 46 .8 mmHg. Atria Left atrium is moderately dilated. Right atrium is moderately dilated. The interatrial septum is inta ct with no evidence for an atrial septal defect. Aortic Valve The aortic valve is normal in structure. Aortic valve is trileaflet. There is no aortic valvular sten osis. Mild aortic regurgitation. Mitral Valve The mitral valve is normal in structure. No evidence of mitral valve stenosis. Mild to moderate casandra l regurgitation. Tricuspid Valve The tricuspid valve is normal in structure. Doppler gradients for this tricuspid prosthetic valve are normal. There is no tricuspid valve stenosis. Mild to moderate tricuspid regurgitation. Pulmonic Valve The pulmonary valve is normal in structure. There is no pulmonic valvular stenosis. Mild pulmonic reg urgitation. Great Vessels The aortic root is normal in size. The ascending aorta is mildly dilated. Aortic arch is normal in ca liber. IVC is normal in size and collapses >50% with inspiration. Pericardium There is no pericardial effusion. 2D Dimensions IVSD d PLAX 0.84 cm M: 0.6-1.2 LV Vol A2C d MOD 129.7 mL LVPW d PLAX 0.86 cm M: 0.6 - 1.2 LV Vol A4C d MOD 114.5 mL LVID d PLAX 5.37 cm M: 4.2 - 5.8 LA vol/ BSA A2C s A-L 38.7 mL/m2 LVDs 4.35 cm M: 2.5 - 4.0 LA vol/ BSA A4C s A-L 35.6 mL/m2 Ao Root d 3.25 cm M: 3.1 - 3.7 LA Vol/ BSA Biplane s A-L 37.6 mL/m2 RA Area A4C 21.70 cm2 LA Area A4C s MOD 22.01 cm2 RA Vol/ BSA A4C s A-L 34.8 mL/m2 LA Area A2C s MOD 22.66 cm2 Ao Asc Diam d 3.88 cm M: 2.6 - 3.4 LV EF A4C MOD 40.8 % LV EF Teichholz 37.3 % LV EF A2C MOD 45.6 % LVEF (Tapia's) 42.42 % M: 52 - 72 LV EF Biplane MOD 42.4 % LV Volume 94.54 mL M: 62 - 150 SV 52.63 mL LV Volume Index 49.49 mL/m2 M: 34 - 74 SV Index 27.58 mL/m2 LV Vol Biplane MOD 124.1 mL FS 18.15 % M-Mode TAPSE 1.54 cm (M/F) >1.7 LV Diastology MV E' medial 0.055 (>0.07 m/s) MV E Vmax 0.87 (0.4-1.3 m/s) LV E/e MED 15.85 (<14) MV E/E' medial 15.87 Aortic Valve LVOT Area 2.87 cm2 AoV Area Vmax 2.47 cm2 LVOT Vmax 1.00 m/s AoV Area/ BSA (Vmax) 1.29 cm2/m2 LVOT Mean Sung. 0.68 m/s GERALD Mean Sung. 2.18 cm2 LVOT Peak Grad 4.0 mmHg GERALD Mean Sung. Index 1.14 cm2/m2 LVOT Mean Grad 2.1 mmHg AR DT 1631 msec LVOT VTI 0.172 m AR PHT 473 msec LVOT Diam s 1.90 cm AoV Vmax 1.16 m/s Velocity Ratio 0.86 AoV Mean Sung. 0.90 m/s AoV Peak Grad 5.4 mmHg LVOT SV 49.45 mL AoV Mean Grad 3.4 mmHg AoV VTI 0.198 m AoV Area VTI 2.50 cm2 AoV Area/ BSA (VTI) 1.31 cm/m2 Mitral Valve MV DT 173 (160-240 msec) MR Vmax 5.23 m/s MV PHT 50 msec MR VTI 1.604 m MV Area PHT 4.39 cm2 MR Peak Grad 109.5 mmHg MV VTI 0.224 m MR Mean Grad 76.1 mmHg MV VTI Annulus 0.218 m MR PISA Radius 0.52 cm MV Area VTI 2.15 (4.0-6.0 cm2) MR EROA 0.12 cm2 MR Aliasing Velocity 0.35 m/s MR PISA 1.73 cm2 Pulmonary Valve PV Vmax 0.76 (0.5-1.5 m/s) RVOT Peak Gr. 1.34 mmHg PV Peak Grad 2.3 mmHg RVOT Mean Gr. 0.70 mmHg PV Mean Grad 1.3 mmHg RVOT VTI 0.121 m PV VTI 0.150 m RVOT Vmax 0.58 m/s Tricuspid Valve TR Peak Grad 43.7 mmHg TR Vmax 3.31 m/s RA Pressure 3.00 mmHg RVSP (TR) 46.8 mmHg
== END 2022-03-17 02:29 ==
LOC: DI 02:09
PROVIDERS: PCP Nurse Practitioner Family; Visit Provider Internal Medicine Cardiovascular Disease
DX: I10 Essential (primary) hypertension (principal)
CPT/HCPCS: 93306

== ENCOUNTER 2022-03-30 12:28 | Outpatient (REF) | payer MEDICARE, SELFPAY ==
[2022-03-30 16:13] LABS: HCT 38.1 % (40.0-50.0); HGB 12.7 g/dL (13.5-17.5); MCHC 33.3 % (32.0-36.0); MCV 93 fL (80-95); MPV 10.5 fL (8.0-11.0); Platelet Count 353 10^3/uL (130-400); RDW-SD 44.1 fL; WBC 7.49 10^3/uL (4.4-10.8)
[2022-03-30 16:28] LABS: Calculated LDL 162 mg/dL (<100); Cholesterol 222 mg/dL (<200); HDL Cholesterol 42 mg/dL (40-60); Triglyceride 91 mg/dL (<150)
== END 2022-03-30 12:29 | disposition home or self-care (01) ==
LOC: NCHCN 12:28
PROVIDERS: PCP Nurse Practitioner Family; Visit Provider Nurse Practitioner Family
DX: E78.5 Hyperlipidemia, unspecified (principal); D64.9 Anemia, unspecified; I10 Essential (primary) hypertension; I48.91 Unspecified atrial fibrillation
CPT/HCPCS: 80061; 85027

== ENCOUNTER → 2022-04-09 13:27 | Outpatient (BNVA) | payer MEDICARE, SELFPAY | PROVIDERS: PCP Nurse Practitioner Family; Referring Provider Nurse Practitioner Family; Visit Provider Internal Medicine Cardiovascular Disease | DX: I48.0 Paroxysmal atrial fibrillation (principal); I42.9 Cardiomyopathy, unspecified; I50.22 Chronic systolic (congestive) heart failure | CPT/HCPCS: 99214 ==

== ENCOUNTER 2022-06-19 13:21 | Outpatient (REF) | payer MEDICARE, SELFPAY ==
[2022-06-19 15:30] LABS: HCT 41.7 % (40.0-50.0); HGB 13.7 g/dL (13.5-17.5); MCH 30.4 pg (27.0-33.0); MCHC 32.9 % (32.0-36.0); MCV 93 fL (80-95); MPV 10.2 fL (8.0-11.0); Platelet Count 337 10^3/uL (130-400); RDW 12.7 % (11.8-14.1); RDW-SD 43.1 fL; WBC 6.78 10^3/uL (4.4-10.8)
[2022-06-19 15:49] LABS: Calculated LDL 89 mg/dL (<100); Cholesterol 149 mg/dL (<200); HDL Cholesterol 46 mg/dL (40-60); Triglyceride 71 mg/dL (<150)
== END 2022-06-19 13:22 | disposition home or self-care (01) ==
LOC: NCHCN 13:21
PROVIDERS: PCP Nurse Practitioner Family; Visit Provider Nurse Practitioner Family
DX: E78.5 Hyperlipidemia, unspecified (principal); D64.9 Anemia, unspecified
CPT/HCPCS: 80061; 85027

== ENCOUNTER → 2022-10-27 09:19 | Outpatient (BNVA) | payer MEDICARE, SELFPAY | PROVIDERS: PCP Nurse Practitioner Family; Referring Provider Nurse Practitioner Family; Visit Provider Internal Medicine Cardiovascular Disease | DX: Z79.01 Long term (current) use of anticoagulants (principal); I42.9 Cardiomyopathy, unspecified; I48.91 Unspecified atrial fibrillation | CPT/HCPCS: 99214 ==

== ENCOUNTER 2022-12-17 18:44 | Outpatient (REF) | payer MEDICARE, SELFPAY ==
[2022-12-17 16:31] LABS: Abs Immature Grans 0.03 10^3/uL (0.0-0.06); Absolute Basophil Count 0.06 10^3/uL (0.0-0.2); Absolute Eosinophil Count 0.28 10^3/uL (0.0-0.7); Absolute Monocyte Count 0.77 10^3/uL (0.1-0.8); Absolute Neutrophil Count 5.74 10^3/uL (1.2-6.7); Basophils % 0.7; Eosinophils % 3.3; HCT 42.1 % (40.0-50.0); Immature Grans % 0.4; Lymphocytes % 18.9; MCH 31.1 pg (27.0-33.0); MCHC 33.3 % (32.0-36.0); MCV 94 fL (80-95); MPV 10.5 fL (8.0-11.0); Monocytes % 9.1; Neutrophils % 67.6; Platelet Count 344 10^3/uL (130-400); RDW 13.2 % (11.8-14.1); RDW-SD 45.1 fL; WBC 8.48 10^3/uL (4.4-10.8)
[2022-12-17 17:09] LABS: ALT 29 U/L (16-63); AST 25 U/L (15-37); Albumin 3.8 g/dL (3.4-5.0); Alkaline Phosphatase 54 U/L (46-116); Anion Gap 9.7 mmol/L (3-11); BUN 24 mg/dL (7-18); Bilirubin, Total 0.4 mg/dL (0.2-1.0); CO2 24.3 mmol/L (21.0-32.0); CREATININE 1.3 mg/dL (0.70-1.30); Calcium 9.3 mg/dL (8.5-10.1); Chloride 106 mmol/L (98-107); Estimated GFR 60.21 (mL/min/1.73m2); Glucose 105 mg/dL (74-106); Potassium 4.4 mmol/L (3.5-5.1); Sodium 140 mmol/L (136-145); Total Protein 7.6 g/dL (6.4-8.2)
[2022-12-17 17:24] LABS: Vitamin D 25 Total 48.9 ng/mL (30-100)
[2022-12-17 22:56] LABS: PSA, Screening 2.3 ng/mL (<=4.5)
== END 2022-12-17 18:45 | disposition home or self-care (01) ==
LOC: NCHCN 18:44
PROVIDERS: PCP Nurse Practitioner Family; Visit Provider Nurse Practitioner Family
DX: I10 Essential (primary) hypertension (principal); D64.9 Anemia, unspecified; Z12.5 Encounter for screening for malignant neoplasm of prostate; I48.91 Unspecified atrial fibrillation; Z79.899 Other long term (current) drug therapy
CPT/HCPCS: 80053; 82306; 84153; 85025

== ENCOUNTER → 2023-05-04 09:33 | Outpatient (BNVA) | payer MEDICARE, SELFPAY | PROVIDERS: PCP Nurse Practitioner Family; Referring Provider Nurse Practitioner Family; Visit Provider Internal Medicine Interventional Cardiology | DX: I48.0 Paroxysmal atrial fibrillation (principal); I10 Essential (primary) hypertension; I42.9 Cardiomyopathy, unspecified | CPT/HCPCS: 99213 ==

== ENCOUNTER → 2023-05-11 09:00 | Outpatient (BNVA) | payer MEDICARE, SELFPAY | PROVIDERS: PCP Nurse Practitioner Family; Referring Provider Nurse Practitioner Family; Visit Provider Internal Medicine Interventional Cardiology | DX: I50.22 Chronic systolic (congestive) heart failure (principal); I48.0 Paroxysmal atrial fibrillation; I10 Essential (primary) hypertension | CPT/HCPCS: 99213 ==

== ENCOUNTER → 2023-08-30 14:25 | Outpatient (BNVA) | payer MEDICARE, SELFPAY | PROVIDERS: PCP Nurse Practitioner Family; Referring Provider Nurse Practitioner Family; Visit Provider Internal Medicine Cardiovascular Disease | DX: I48.0 Paroxysmal atrial fibrillation (principal); I10 Essential (primary) hypertension; I42.9 Cardiomyopathy, unspecified | CPT/HCPCS: 99213 ==

== ENCOUNTER 2023-11-16 08:14 | Outpatient (CLI) | payer MEDICARE, SELFPAY | END 2023-11-16 08:15 | disposition home or self-care (01) | LOC: DI.CARD 08:16 | PROVIDERS: PCP Nurse Practitioner Family; Visit Provider Internal Medicine Cardiovascular Disease | DX: I48.0 Paroxysmal atrial fibrillation (principal); I42.9 Cardiomyopathy, unspecified | CPT/HCPCS: 93010 ==

== ENCOUNTER 2023-11-29 08:29 | Outpatient (CLI) | payer MEDICARE, SELFPAY ==
--- NOTE | 2023-11-29 08:15 | RT.EKG_ITS ---
APPROVED REPORT Exam: Resting ECG Reason for Exam: afib Patient Location: O HR:59 bpm ECG Measurements Heart Rate [address] 139 P 36 QRSd 96 QRS 22 QT 430 T 48 QTc 426 Conclusion Sinus rhythm...normal P axis, V-rate 50- 99 Normal Electrocardiogram
== END 2023-11-29 08:30 | disposition home or self-care (01) ==
LOC: DI.CARD 08:29
PROVIDERS: PCP Nurse Practitioner Family; Visit Provider Internal Medicine Cardiovascular Disease
DX: I48.0 Paroxysmal atrial fibrillation (principal); I47.19 Other supraventricular tachycardia; I42.9 Cardiomyopathy, unspecified
CPT/HCPCS: 93010

== ENCOUNTER → 2023-11-29 13:03 | Outpatient (BNVA) | payer MEDICARE, SELFPAY | PROVIDERS: PCP Nurse Practitioner Family; Referring Provider Nurse Practitioner Family; Visit Provider Internal Medicine Cardiovascular Disease | DX: I42.9 Cardiomyopathy, unspecified (principal); I48.0 Paroxysmal atrial fibrillation | CPT/HCPCS: 93005; 99213 ==

== ENCOUNTER 2024-03-31 10:52 | Outpatient (REF) | payer MEDICARE, SELFPAY ==
[2024-03-31 15:14] LABS: HCT 41.1 % (40.0-50.0); HGB 13.8 g/dL (13.5-17.5); MCH 31.5 pg (27.0-33.0); MCHC 33.6 % (32.0-36.0); MCV 94 fL (80-95); MPV 10.2 fL (8.0-11.0); Platelet Count 327 10^3/uL (130-400); RBC 4.38 10^6/uL (4.36-5.78); RDW 12.4 % (11.8-14.1); RDW-SD 43.1 fL
[2024-03-31 15:54] LABS: ALT 24 U/L (16-63); AST 23 U/L (15-37); Albumin 3.6 g/dL (3.4-5.0); Alkaline Phosphatase 55 U/L (46-116); Anion Gap 10.8 mmol/L (3-11); BUN 20 mg/dL (7-18); CO2 25.2 mmol/L (21.0-32.0); CREATININE 1.3 mg/dL (0.70-1.30); Calcium 9.4 mg/dL (8.5-10.1); Calculated LDL 80 mg/dL (<100); Chloride 104 mmol/L (98-107); Cholesterol 161 mg/dL (<200); Estimated GFR 59.47 (mL/min/1.73m2); Glucose 105 mg/dL (74-106); HDL Cholesterol 45 mg/dL (40-60); Magnesium 2.1 mg/dL (1.8-2.4); Sodium 140 mmol/L (136-145); Total Protein 7.7 g/dL (6.4-8.2); Triglyceride 183 mg/dL (<150)
[2024-03-31 22:26] LABS: PSA, Screening 3.3 ng/mL (<=4.5)
== END 2024-03-31 10:53 | disposition home or self-care (01) ==
LOC: NCHCN 10:52
PROVIDERS: PCP Nurse Practitioner Family; Visit Provider Nurse Practitioner Family
DX: E78.5 Hyperlipidemia, unspecified (principal); K21.9 Gastro-esophageal reflux disease without esophagitis; Z12.5 Encounter for screening for malignant neoplasm of prostate
CPT/HCPCS: 80053; 80061; 84153; 85027; 83735

== ENCOUNTER 2024-05-15 02:10 | Outpatient (CLI) | payer MEDICARE, SELFPAY ==
--- NOTE | 2024-05-15 13:32 | DI.US_ITS ---
APPROVED REPORT EXAM: Comprehensive 2D, Doppler, and color-flow Echocardiogram Patient Location: Out-Patient [employer] Helper: Sherrie Hein RDCS (AE) Indications: LV Function, Cardiomyopathy Other Information Study Quality: Adequate Conclusion Normal left ventricular wall thickness and chamber size. Ejection fraction is 50%. There are no seg mental wall motion abnormalities Normal right ventricular size and function Mildly dilated left atrium. Normal right atrial size There are no structural valvular abnormalities There is mild mitral, aortic, and tricuspid regurgitation Estimated right ventricular systolic pressure is 44 mmHg Ascending aorta measures 4 cm Wall motion Left Ventricle The left ventricle is normal size. The overall left ventricular systolic function appears low normal. There is normal left ventricular wall thickness. Regional wall motion is grossly normal. There is n o ventricular septal defect visualized. LVEF is 50%. Right Ventricle The right ventricle is normal size. The right ventricular systolic function is normal. Atria Left atrium is mildly dilated. The right atrium size is normal. The interatrial septum is intact with no evidence for an atrial septal defect. Aortic Valve The aortic valve is normal in structure. Aortic valve is trileaflet. There is no aortic valvular sten osis. Mild aortic regurgitation. Mitral Valve The mitral valve is normal in structure. No evidence of mitral valve stenosis. Mild mitral regurgitat ion. Tricuspid Valve The tricuspid valve is normal in structure. There is no tricuspid valve stenosis. mild tricuspid reg urgitation. The RVSP is 43.4 mmHg. Pulmonic Valve The pulmonary valve is normal in structure. There is no pulmonic valvular stenosis. There is no pulmo sissy valvular regurgitation. Great Vessels The aortic root is normal in size. The ascending aorta is moderately dilated. Aortic arch is normal i n caliber. IVC is normal in size and collapses >50% with inspiration. Pericardium There is no pericardial effusion. 2D Dimensions IVSD d PLAX 0.85 cm M: 0.6-1.2 Ao Root d 3.24 cm M: 3.1 - 3.7 LVPW d PLAX 0.84 cm M: 0.6 - 1.2 Ao Asc Diam d 4.00 cm M: 2.6 - 3.4 LVID d PLAX 5.47 cm M: 4.2 - 5.8 LVDs 4.08 cm M: 2.5 - 4.0 LV EF Teichholz 49.7 % FS 25.44 % LV EDV (Teich) 145.8 mL LV ESV (Teich) 73.4 mL M-Mode TAPSE 1.96 cm (M/F) >1.7 Auto EF LV EDV A4C 107.3 mL LV EDV A2C 124.1 mL LV EDV BP 114.2 mL LV ESV A4C 53.8 mL LV ESV A2C 60.1 mL LV ESV BP 55.7 mL LVEF(%) A4C 49.9 % LVEF(%) A2C 51.6 % LVEF(%) BP 51.2 % LV SV A4C 53.5 ml LV SV A2C 64.0 ml LV SV BP 58.5 ml LV CO A4C 3.3 L/min LV CO A2C 3.8 L/min LV CO BP 3.5 L/min HR A4C 61.33 BPM HR A2C 59.50 BPM LV EDV Index (BP) LV Strain Long Pk Overal Avg (s) 17.39 LA Volume LA Length A4C 6.2 cm LA Length A2C 5.8 cm LA Area A4C s 26.06 cm2 LA Area A2C s 20.05 cm2 LA Vol A4C A-L 92.29 mL LA Vol A2C A-L 59.25 mL LA Vol Biplane A-L 77.0 mL LA Vol/BSA A4C A-L LA Vol/BSA A2C A-L LA Vol/BSA BP A-L 38.7 mL/m2 LA Vol A4C MOD 83.8 mL LA Vol A2C MOD 55.2 mL LA Vol BP MOD 70.7 mL RA Volume RA Area A4C 19.1 cm2 RA ESV A4C (A-L) 49.7mL RA Vol/BSA A4C A-L RA Length A4C 6.2 cm RA ESV A4C (MOD) 49.0mL LV Diastology MV E' medial 0.067 (>0.07 m/s) MV E Vmax 0.73 (0.4-1.3 m/s) MV E/E' MED 10.99 (<14) MV A Vmax 0.55 (0.4-1.3 m/s) MV E' lateral 0.092 (>0.1 m/s) E/A Ratio 1.3 MV E/E' LAT 7.91 (<14) MV E' Average 0.080 m/s MV E/E'(average) 9.20 Aortic Valve AoV Vmax 1.31 m/s LVOT Vmax 0.96 m/s AoV Peak Grad 38.4 mmHg LVOT Peak Grad 3.7 mmHg AoV Area (Vmax) 2.27 cm2 LVOT VTI 0.226 m AoV VTI 0.317 m LVOT Mean Grad 2.1 mmHg AoV Mean Sung. 0.92 m/s LVOT SV 69.82 mL AoV Mean Grad 3.9 mmHg LVOT Diam s 1.95 cm AoV Area (VTI) 2.21 cm2 AV Regurg Peak Gr. 6.87 mmHg Velocity Ratio 0.73 AR Decel Baxter 1.5m/sec2 AR DT 2784 msec AR PHT 807 msec AR Vmax 4.18 m/s Mitral Valve MV DT 297 (160-240 msec) MV Vmax TIPS 0.76 m/s MV Mean Grad 0.9 (<2mmHg) MV VTI 0.252 m Pulmonary Valve PV Vmax 0.85 (0.5-1.5 m/s) RVOT Vmax 0.71 m/s PV Peak Grad 2.9 mmHg RVOT Peak Gr. 2.0 mmHg PV Mean Sung 0.59 m/s RVOT VTI 0.177 m PV Mean Grad 1.6 mmHg RVOT Mean Gr. 1.3 mmHg Tricuspid Valve RA Pressure 3.00 mmHg TR Vmax 3.18 m/s TV S' 0.14 m/s TR Peak Grad 40.3 mmHg RVSP (TR) 43.4 mmHg
== END 2024-05-15 02:30 ==
LOC: DI 02:11
PROVIDERS: PCP Nurse Practitioner Family; Visit Provider Internal Medicine Cardiovascular Disease
DX: I42.8 Other cardiomyopathies (principal)
CPT/HCPCS: 93306

== ENCOUNTER → 2024-05-30 10:35 | Outpatient (BNVA) | payer MEDICARE, SELFPAY | PROVIDERS: PCP Nurse Practitioner Family; Visit Provider Internal Medicine Cardiovascular Disease | DX: I42.9 Cardiomyopathy, unspecified (principal); I48.0 Paroxysmal atrial fibrillation | CPT/HCPCS: 99213 ==

== ENCOUNTER 2025-04-02 13:05 | Outpatient (REF) | payer MEDICARE, SELFPAY ==
[2025-04-02 17:04] LABS: Hemoglobin A1C 5.2 % (<5.7)
[2025-04-02 17:08] LABS: ALT 20 U/L (10-49); AST 26 U/L (<34); Albumin 4.4 g/dL (3.4-5.0); Alkaline Phosphatase 62 U/L (46-116); Anion Gap 9.7 mmol/L (3-11); BUN 22 mg/dL (9-23); Bilirubin, Total 0.40 mg/dL (0.2-1.2); CO2 24.3 mmol/L (20.0-31.0); Calcium 9.3 mg/dL (8.3-10.6); Chloride 107 mmol/L (98-107); Glucose 94 mg/dL (74-106); Potassium 4.4 mmol/L (3.5-5.1); Sodium 141 mmol/L (136-145); Total Protein 7.2 g/dL (5.7-8.2)
[2025-04-03 10:22] LABS: PSA, Screening 3.7 ng/mL (<=6.5)
== END 2025-04-02 13:06 | disposition home or self-care (01) ==
LOC: NCHCN 13:05
PROVIDERS: PCP Nurse Practitioner Family; Visit Provider Nurse Practitioner Family
DX: E78.5 Hyperlipidemia, unspecified (principal); Z00.00 Encounter for general adult medical examination without abnormal findings; Z12.5 Encounter for screening for malignant neoplasm of prostate
CPT/HCPCS: 80053; 84153; 83036